=== PATIENT | male | born 1995 | race Caucasian/White ===

== ENCOUNTER 2024-10-07 10:45 | Outpatient (REF) | payer OTHER, SELFPAY ==
[2024-10-07 12:57] LABS: Erythrocyte Sedimentation Rate 2 MM/HR (0-15)
[2024-10-08 09:07] LABS: Lyme Abs Screen <0.90 index
== END 2024-10-07 10:46 | disposition home or self-care (01) ==
LOC: HO.LAB 10:45
PROVIDERS: Visit Provider Psychiatry & Neurology Neurology
DX: G43.009 Migraine without aura, not intractable, without status migrainosus (principal)
CPT/HCPCS: 36415; 85652; 86617; 86618

== ENCOUNTER 2024-10-15 12:47 | Outpatient (REF) | payer OTHER, SELFPAY ==
--- NOTE | ~2024-10-15 | MR_ITS ---
EXAMINATION: MR BRAIN WITHOUT CONTRAST CLINICAL INFORMATION: Migraine. COMPARISON: None available. TECHNIQUE: MRI of the brain was obtained using routine sequences without contrast. FINDINGS: No restricted diffusion. No acute intracranial hemorrhage, mass effect, shift, hydrocephalus or herniation. Hernandez-white matter differentiation is normal. Cavum septum pellucidum, congenital. Cavum vergae, congenital. Posterior cranial fossa contents demonstrated 9 descensus of the cerebellar tonsils below foramen magnum. Flow-void signal within the main cerebral vessels is normal. There is a 5 mm isointense T1 slightly hyperintense T2 FLAIR round soft tissue signal in the right anterior cranial fossa involving the right orbital frontal gyrus into the right frontal sinus no fully evaluated on the coronal plane. Polypoid mucosal thickening in the paranasal sinuses involving mostly the left maxillary sinus. Sellar/suprasellar region is normal. MR/MR head/brain wo con IMPRESSION: Chiari type I malformation. Questionable/concerning focal 5 mm encephalocele, right frontal anterior cranial fossa. Recommend dedicated MRI with coronal images through the paranasal sinuses. Electronically signed by: Nitesh Jones MD 10/16/2024 07:15 AM EDT
== END 2024-10-15 12:48 | disposition home or self-care (01) ==
LOC: HO.MRI 12:47
PROVIDERS: Visit Provider Psychiatry & Neurology Neurology
DX: G43.009 Migraine without aura, not intractable, without status migrainosus (principal)
CPT/HCPCS: 70551

== ENCOUNTER → 2024-10-15 12:50 | Outpatient (BNV) | payer OTHER, SELFPAY | PROVIDERS: Visit Provider Radiology Diagnostic Radiology | DX: Q07.9 Congenital malformation of nervous system, unspecified (principal); G43.909 Migraine, unspecified, not intractable, without status migrainosus | CPT/HCPCS: 70551 ==

== ENCOUNTER 2025-02-10 10:31 | Outpatient (AMB) | payer OTHER, SELFPAY ==
--- NOTE | 2025-02-10 10:40 | MHC.OFFVIS ---
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 He continues to have headaches almost daily but headaches were sporadic. He has tried topiramate, amitriptyline, and propranolol for couple of weeks at a time and has not noted any significant difference. Sometime he was taking quch-wye-[id number] medicine or ibuprofen. Otherwise no new symptom is appeared. [facility] Medical History (Updated 02/10/25 @ 10:52 by Yazan Paredes MD) Encephalocele Arnold-Chiari malformation, type I Migraine without aura Review of Systems Const Details: Constitutional:?No fever, chills, fatigue, weight loss, or night sweats. HEENT:?No headache, vision changes, hearing loss, nasal congestion, sore throat. Neurological:?No dizziness, syncope, seizures, numbness, tingling, weakness, tremors, memory loss. Psychiatric:?No anxiety, depression, mood swings, sleep disturbance, or hallucinations. Endocrine:?No heat/cold intolerance, polydipsia, polyuria, or hair/skin changes. Hematologic/Lymphatic:?No easy bruising, bleeding, or lymphadenopathy. Integumentary (Skin):?No rash, lesions, itching, or color changes. ? Physical Exam Neuro Other: Mental Status: Alert and oriented to person, place, and time. Normal attention. Normal spontaneous speech, fluency, and comprehension. No obvious issues with mood and memory. Affect is appropriate. Cranial Nerves: CN II: Visual [place] full to confrontation, visual acuity intact. CN III, IV, : Pupils equal, round, reactive to light and accommodation. Extraocular movements are normal. CN V: Facial sensation is normal. CN VII: Facial movements symmetrical. CN VIII: Hearing intact to bedside conversation is normal. CN IX, X: Palate elevates symmetrically. CN XI: Shoulder shrug and head turn symmetrical. CN XII: Tongue midline without atrophy or fasciculations. Extrapyramidal: Full facial expressions and blinking. No rigidity. Movements are appropriate with no tremor or abnormality. Speech: Normal; no dysarthria or tremor. ? Assessment & Plan Assessment & Plan (1) Migraine without aura: Comment: Meds tried: Tylenol, Ibuprofen, prochlorperazine, propranolol, sumatriptan, topiramate, amitriptyline Code(s): G43.009 - Migraine without aura, not intractable, without status migrainosus Category: Medical Qualifiers: Status migrainosus presence: without status migrainosus Intractability: not intractable Qualified Code(s): G43.009 - Migraine without aura, not intractable, without status migrainosus (2) Encephalocele: Comment: MRI brain [facility] at [facility] in Oct 2024: Chiari I (9mm), R frontal sinus 5 x 6 mm nodule suggestive of 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 b: Again, he was educated about migriane and its management. Medications: New divalproex 125 mg PO ONCE 30 caps 0RF Coding Level of Care Code Est Pt Level 4 (95548) Diagnoses Migraine without aura and without status migrainosus, not intractable G43.009 Status migrainosus presence: without status migrainosus Intractability: not intractable Encephalocele Q01.9 Arnold-Chiari malformation, type I G93.5
== END 2025-02-10 10:58 | disposition home or self-care (01) ==
LOC: HO.HSM 10:32
PROVIDERS: PCP Student in an Organized Health Care Education/Training Program; Visit Provider Psychiatry & Neurology Neurology
DX: G43.009 Migraine without aura, not intractable, without status migrainosus (principal); Q01.9 Encephalocele, unspecified; G93.5 Compression of brain
CPT/HCPCS: 99214